=== PATIENT | male | born 1995 | race Caucasian/White ===

== ENCOUNTER → 2020-11-28 | Outpatient (CLI) | payer BC, OTHER ==
--- NOTE | 2020-11-28 13:30 | Diagnostic Imaging Report ---
INDICATION: Back pain. TECHNIQUE: Three views were obtained. FINDINGS: The alignment is normal. The vertebral body heights are well-maintained. There is no fracture or traumatic subluxation. The lungs are clear. IMPRESSION: No fracture or traumatic subluxation in the thoracic spine. Dictated by: Dictated on workstation # [id number]
--- NOTE | 2020-11-28 14:21 | Diagnostic Imaging Report ---
INDICATION: Back pain. 3 views were obtained FINDINGS: The alignment is normal. Vertebral body heights are well-maintained. No spondylolysis or spondylolisthesis. No fractures are identified. IMPRESSION: Unremarkable three-view lumbar spine series. Dictated by: Dictated on workstation # [id number]
== END ==
LOC: RAD 12:26
PROVIDERS: ATTEND Nurse Practitioner Family
DX: M54.9 Dorsalgia, unspecified (principal)
CPT/HCPCS: 72072; 72100

== ENCOUNTER 2021-04-21 09:11 | Emergency (ER) | payer BC ==
[~2021-04-21] VITALS: Ht 190 cm; Wt 63.5 kg
[2021-04-21] MEDS ORDERED: NAPROXEN 250 MG (NAPROSYN) TABLET PO ONE (09:30)
--- NOTE | 2021-04-21 09:31 | ED Chest Pain ---
General Stated Complaint: BACK PAIN,CP,HERRING Source: patient Exam Limitations: no limitations History of Present Illness Date Seen by Provider: Apr 21, 2021 Time Seen by Provider: 09:18 Initial Comments Patient to the ER by private conveyance from home with chief complaint that yesterday he started having some chest pain worse on inspiration feeling like his lungs were meeting his chest wall substernal midline and radiating through to his back. No nausea, abdominal pain or relationship to eating. No history of chest pain like this before. He has been coughing up phlegm for the past day. In February 2021 he had Covid along with his roommate but has no sick contacts now. He is not vaccinated for COVID or flu. No fevers or chills. No nausea or vomiting. He took some ibuprofen 2 to 3 tablets yesterday as well as some edibles and a muscle relaxant which none of which helped his pain. He has no significant medical history surgeries or take any medicines routinely. 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 He said the pain is an 8 out of 10 and kept informing able to even study. Allergies and Home Medications Allergies Coded Allergies: amoxicillin (Verified Allergy, Unknown, 04/21/21) Patient Home Medication List Home Medication List Reviewed: Yes Review of Systems Review of Systems Constitutional: No chills, No fever, No malaise EENTM: No Blurred Vision, No Double Vision Respiratory: Cough, Shortness of Air Cardiovascular: See HPI, Chest Pain (On breathing); Denies Palpitations, Denies Syncope Gastrointestinal: Denies Abdomen Distended, Denies Abdominal Pain Genitourinary: Denies Burning, Denies Discharge Musculoskeletal: No back pain, No joint pain All Other Systems Reviewed Negative Unless Noted: Yes Past Knlgezf-Cdwwds-Dgsguw Hx Patient Social History Tobacco Use?: No Use of E-Cig and/or Vaping dev: No Substance use?: Yes Substance type: Marijuana Alcohol Use?: Yes Alcohol type: Hard Liquor Alcohol Frequency: Once in a while Physical Exam Vital Signs Vital Signs - First Documented 04/21/21 09:16 Temp 36.5 Pulse 95 Resp 20 B/P (MAP) 126/95 (105) Pulse Ox 98 O2 Delivery Room Air Capillary Refill : Height, Weight, BMI Height: '" Weight: lbs. oz. kg; BMI Method: General Appearance: No Apparent Distress, WD/WN, Thin HEENT: PERRL/EOMI, TMs Normal, Normal ENT Inspection, Pharynx Normal, Moist Mucous Membranes Neck: Full Range of Motion, Normal Inspection Respiratory: Chest Non Tender, Lungs Clear, Normal Breath Sounds, No Accessory Muscle Use, No Respiratory Distress, Other (Pectus excavatum, mild) Cardiovascular: Regular Rate, Rhythm, Normal Peripheral Pulses Gastrointestinal: Normal Bowel Sounds, Non Tender, Soft Extremity: Normal Capillary Refill, Normal Inspection, No Pedal Edema Neurologic/Psychiatric: Alert, Oriented x3 Skin: Normal Color, Warm/Dry Progress/Results/Core Measures Results/Orders Lab Results Laboratory Tests Test 04/21/21 09:33 Range/Units Influenza Type A Antigen NEGATIVE NEGATIVE Influenza Type B Antigen NEGATIVE NEGATIVE My Orders Orders - CULLEN THOMAS Coronavirus Sars-Cov-2 So 2019 (04/21/21 09:21) Influenza A & B Antigens (04/21/21 09:21) Chest 1 View, Ap/Pa Only (04/21/21 09:21) Continuous Ekg Monitoring (04/21/21 09:21) Ekg Tracing (04/21/21 09:21) Naproxen Tablet (Naprosyn Tablet) (04/21/21 09:30) Medications Given in ED Current Medications Medications Dose Ordered Sig/Lalo Route Start Time Stop Time Status Last Admin Dose Admin Naproxen 500 mg ONCE ONCE PO 04/21/21 09:30 04/21/21 09:31 DC 04/21/21 09:30 500 MG Vital Signs/I&O 04/21/21 04/21/21 09:16 10:04 Temp 36.5 Pulse 95 70 Resp 20 18 B/P (MAP) 126/95 (105) 116/88 Pulse Ox 98 100 O2 Delivery Room Air Room Air Progress Progress Note : Time: 09:27 Progress Note Patient is adamant that he does not want anything to do with needles. He does not want a blood draw nor does he want parenteral medicine. He became diaphoretic at the mention of drawing blood. His vital signs are normal and I suspect he may have bronchitis versus pneumonia. No crackles are auscultated bowl. We will get a chest x-ray swab for COVID and flu and an EKG. Explained to him by not doing labs it does limit some things we can look at but we can make some inference that he is having pleuritic chest pain with a productive cough likely due to a lower respiratory versus upper respiratory infection. We will give him some naproxen 500 mg. Initial ECG Impression Date: Apr 21, 2021 Initial ECG Impression Time: 09:24 Initial ECG Rate: 66 Initial ECG Rhythm: Normal Sinus Initial ECG Intervals: Normal Initial ECG Impression: Normal Initial ECG Comparisson: No Previous ECG Available Comment Normal sinus rhythm without clinically relevant ST changes. Diagnostic Imaging Diagonstic Imaging: Xray Plain Films/CT/US/NM/MRI: chest Comments [facility] [place], [place] NAME: SHANI JIANG [facility] REC#: [id number] PT STATUS: REG ER : 1995 PHYSICIAN: CULLEN THOMAS MD ADMIT DATE: 04/21/21/ER Draft Date of Exam:04/21/21 CHEST 1 VIEW, AP/PA ONLY INDICATION: Cough. TIME OF EXAM: 9:46 AM No prior studies are available for comparison. FINDINGS: The heart size is normal. The pulmonary vascularity is unremarkable. The lungs are clear. No infiltrate, effusion or pneumothorax is detected. IMPRESSION: No acute cardiopulmonary process is detected. Dictated on workstation # [id number] Dict: 04/21/21 0944 Trans: 04/21/21 0950 PETE [id number] Interpreted by: LANG MORIN MD Electronically signed by: Reviewed: Reviewed by Me Departure Impression Primary Impression: Pleuritic chest pain Disposition: HOME, SELF-CARE Condition: Stable Departure-Patient Inst. Decision time for Depature: 11:50 Referrals: NO,LOCAL PHYSICIAN (PCP/Family) Primary Care Physician Patient Instructions: Pleuritic Chest Pain (DC) Add. Discharge Instructions: Naproxen 500 mg twice a day for the next 1 to 2 weeks until the pain improves. Prednisone 2 tablets daily for the next 5 days to help reduce inflammation in your chest. Someone will call you with the results of your Covid swab in the next couple days. Stay home for at least 5 days and go back to work and off isolation as soon as you are 24 hours symptom-free after 04/26/2021. Scripts Prednisone (Prednisone) 20 Mg Tab 40 MG PO DAILY for 5 Days, #10 TAB 0 Refills Prov: CULLEN THOMAS 04/21/21 Naproxen (Naprosyn) 500 Mg Tablet 500 MG PO BID for 14 Days, #30 TAB 0 Refills Prov: CULLEN THOMAS 04/21/21 Work/School Note: Work Release Form Date Seen in the Emergency Department: Apr 21, 2021 Return to Work: Apr 26, 2021 Restrictions: Return-No Fever (24hrs) Other Restrictions Listed Below: If COVID+ then off isolation 04/30/2021. CULLEN THOMAS Apr 21, 2021 09:30
--- NOTE | 2021-04-21 09:51 | Diagnostic Imaging Report ---
INDICATION: Cough. TIME OF EXAM: 9:46 AM No prior studies are available for comparison. FINDINGS: The heart size is normal. The pulmonary vascularity is unremarkable. The lungs are clear. No infiltrate, effusion or pneumothorax is detected. IMPRESSION: No acute cardiopulmonary process is detected. Dictated by: Dictated on workstation # [id number]
[2021-04-21] MEDS ORDERED: NAPR-1071 PO (11:53)
[2021-04-21] MEDS ORDERED: PRD20T PO (11:53)
[2021-04-21 12:01] VITALS: BP 117/71
== END 2021-04-21 12:01 | disposition home or self-care (01) ==
LOC: EDUNIT# 09:11 → ER 09:12
DX: R07.81 Pleurodynia (principal); Z20.822 Contact with and (suspected) exposure to COVID-19
CPT/HCPCS: 71045; 87635; 87804; 93005